=== PATIENT | male | born 1960 | race African-American/Black ===

== ENCOUNTER 2022-07-01 20:49 | Inpatient (IN) ==
[2022-07-01] MEDS ORDERED: ASPIRIN 81 MG CHEWTAB ONE (21:14)
[2022-07-01] MEDS ORDERED: ASPIRIN 81 MG CHEWTAB PO ONE (21:18)
[2022-07-01 21:33] LABS: INR 1.12 (0.8-1.3)
[2022-07-01 21:36] LABS: BASOPHILS # (AUTO) 0.1 X10^3/uL (0.0-0.1); BASOPHILS % (AUTO) 0.9 % (0.2-1.0); EOSINOPHILS # (AUTO) 0.3 x10^3/uL (0.0-0.2); EOSINOPHILS % (AUTO) 4.4 % (0.9-2.9); HEMATOCRIT 20.5 % (42.0-54.0); LYMPHOCYTES # (AUTO) 2.4 X10^3/uL (1.3-2.9); LYMPHOCYTES % (AUTO) 32.9 % (21.0-51.0); MEAN CORPUSCULAR HGB CONC 32.8 g/dL (33.0-35.0); MEAN CORPUSCULAR VOLUME 79.2 fL (80.0-100.0); MEAN PLATELET VOLUME 7.9 fL (7.4-11.0); MONOCYTES # (AUTO) 0.8 x10^3/uL (0.3-0.8); MONOCYTES % (AUTO) 10.8 % (0.0-13.0); NEUTROPHILS # (AUTO) 3.7 x10^3/uL (2.2-4.8); RED BLOOD COUNT 2.59 X10^6/uL (4.7-6.0); RED CELL DISTRIBUTION WIDTH 25.8 % (11.6-16.5); WHITE BLOOD COUNT 7.2 X10^3/uL (3.6-10.0)
[2022-07-01 21:40] LABS: ALANINE AMINOTRANSFERASE 22 Units/L (12-78); ALBUMIN 3.4 g/dL (3.4-5.0); ALKALINE PHOSPHATASE 98 Units/L (46-116); ASPARTATE AMINO TRANSFERASE 18 Units/L (15-37); BLOOD UREA NITROGEN 25 mg/dL (7-18); CALCIUM 8.1 mg/dL (8.5-10.1); CARBON DIOXIDE 28.4 mmol/L (21-32); CHLORIDE 105 mmol/L (98-107); CREATINE KINASE 200 Units/L (39-308); CREATININE 1.14 mg/dL (0.70-1.30); HEMOGLOBIN 6.7 g/dL (13.5-18.0); MAGNESIUM 2.1 mg/dL (1.7-2.9); SODIUM 141 mmol/L (136-145); eGFR NON BLACK RACES > 60 (>60)
[2022-07-01 22:04] LABS: ANISOCYTOSIS 3+; HYPOCHROMASIA 1+; MICROCYTOSIS SLIGHT; OVALOCYTES SLIGHT; PLATELET MORPHOLOGY COMMENT NORMAL (NORMAL); TARGET CELLS 1+
--- NOTE | 2022-07-01 22:12 | DR.N/VMALE ---
HPI Time Seen Time Seen by Provider: 07/01/22 22:11 Primary Care Physician Primary Care Physician: BELKIS RAM IN [place] HPI Comment HPI Comment: PATIENT IS 61YR OLD MALE WITH HISTORY OF HYPERTENSION, CAD, PREVIOUS IN, DYSLIPIDEMIA AND CHF IN ER WITH SQUEEZING CHEST PAIN AND TIGHTNESS. EPISODE TONIGHT WITH NAUSEA, VOMITING TIMES 2 AND DIZZINESS AND DIAPHORESIS. DID TAKE HIS DAILY 81MG ASPRIN. DENIES COUGH OR CONGESTION OR FEVER. NO DIARRHEA OR DYSURIA. SLIGH SOB ON EXERTION. Complaints Chief Complaint Doctors Comments: CHEST PAIN ON AND OFF TIMES ONE WEEK. Chief Complaint:: PT AMBULATORY IN ED WITH C/O 06/26 "SQUEEZING" CHEST TIGHTNESS x1 WEEK. N/V x2 AND COLD SWEATS TODAY AND SOME DIZZINESS. COVID-19 Coronavirus risk:travel/contact w/high risk person: No Has patient experienced Coronavirus symptoms: No Reviewed Nurses Notes Reviewed: Yes Source History Provided: Patient Mode of Arrival Mode of Arrival: Ambulatory Timing Onset of Chief Complaint: 06/24/22 Context Onset: Spontaneous Recent: None History of: Diabetes Associated Signs and Symptoms Abdominal Pain Quality: Other (SWEEZING, TIGHTNESS.) PMH PMH Past Medical History: Yes Past Medical History: CHF, Coronary Artery Disease, Diabetes, Dyslipidemia, Hypertension and IN Past Medical History Comment: [place] x2 Past Surgical History: Yes Surgical History: Angioplasty/Stents and CABG/Valve Surgery Past Surgical History Comment: TRIPLE BYPASS Family History History of Family Medical Conditions: Yes Family Medical History: Diabetes Mellitus, Coronary Artery Disease and Hypertension Social History Type of Tobacco Use: None Alcohol Use: DAILY Do you use any recreational Drugs:: No Lives With: Spouse Lives Where: Home Travel Risk Coronavirus risk:travel/contact w/high risk person: No Has patient experienced Coronavirus symptoms: No Infectious screening Have you traveled outside the country in the last 6 months?: No Isolation: Standard ROS Review of Systems Constitutional: Weakness and Fatigue; negative Fever Eyes: No Symptoms Reported ENTM: No Symptoms Reported; negative Nose Discharge or Nose Congestion Respiratoy: See HPI and Short of Breath; negative Moist Cough or Wheezing Cardiovascular: See HPI and Chest Pain; negative Edema or Palpitations Gastrointestinal/Abdominal: Nausea and Vomiting; negative Abdominal Pain or Radha rrhea Genitourinary: No Symptoms Reported and See HPI; negative Dysuria Neurological: See HPI, Weakness and Dizziness; negative Headache Musculoskeletal: No Symptoms Reported and See HPI; negative Back Pain, Muscle Pain or Chest wall Integumentary: No Symptoms Reported, See HPI and Dryness; negative Change in Color, Rash or Juandice Hematologic/Lymphatic: No Symptoms Reported and See HPI; negative Easy Bleeding, Easy Bruising or Swollen Glands Endocrine: No Symptoms Reported and See HPI; negative Increased Thirst or Increased Urine Psychiatric: No Symptoms Reported and See HPI All Other Systems: Reviewed and Negative PE Vital Signs Vitals: Temperature 98.8 F Pulse Rate [Left Radial] 81 Pulse Rate 80 Respiratory Rate 13 Blood Pressure [Left Arm] 152/57 Blood Pressure 162/67 O2 Sat by Pulse Oximetry 99 General Limitations: No Limitations General Appearance: Alert and In No Apparent Distress Head Head Exam: Normal Inspection and Atraumatic Eyes Eye exam: Normal Appearance, PERRL and EOMI; negative Scleral Icterus or Conjunctival Injection ENT ENT Exam: Normal Exam, Normal Oropharynx, Normal External Ear Exam and TM's Normal Bilaterally Neck Neck Exam: Normal Inspection and Trachea Midline; negative Tenderness Chest Chest Inspection: Normal Inspection and Symmetric Chest Wall Rise; negative Tenderness Respiratory Respiratory Exam: Normal Lung Sounds Bilat; negative Accessory Muscle Use, Chest Wall Tenderness or Respiratory Distress Respiratory Exam: Bilateral: Rhonchi Cardiovascular Cardiovascular Exam: Regular Rate, Normal Rhythm and Normal Heart Sounds; negative Systolic Murmur or Diastolic Murmur Abdominal Exam Abdominal Exam: Normal Inspection, Normal Bowel Sounds and Soft; negative Tenderness Rectal Rectal Exam: Deferred Exam: Male: Deferred Extremities Extremities Exam: Normal Inspection and Normal Capillary Refill Back Back Exam: Full ROM; negative (R) CVA Tenderness or (L) CVA Tenderness Neurologic Neurological Exam: Alert, Oriented X3 and CN II-XII Intact; negative Motor Sensory Deficit Psychiatric Psychiatric Exam: Normal Affect and Anxious Skin Skin Exam: Intact MDM Differential Diagnosis Differential Diagnosis: Considerations may Include:: Gastroenteritis, Pancreatitis and Other (IN, ANGINA, CHF, PNEUMONIA, UTI.) COURSE Treatment Treatment: SEE ORDERS DONE WHILE PATIENT WAS IN ER.MPATIENT HAD CP WHILE IN ER AND WAS RESOLVED WITH ONE S/L NTG. LABS, XRAY AND EKG REPORTS DISCUDDED WITH PATIENT. Consultation Consultation Comments: DISCUSSED PATIENT WITH DR. BERGERON. HE WILL ADMIT PATIENT. Education/Counseling Education/Counseling: Patient and Family Educated On: Diagnosis ROR Labs Reviewed Laboratory Results Reviewed?: Yes Result Diagrams: 07/01/22 21:15 07/01/22 21:15 Laboratory: WBC 7.2 X10^3/uL (3.6-10.0) 07/01/22 21:15 RBC 2.59 X10^6/uL (4.7-6.0) L 07/01/22 21:15 Hgb 6.7 g/dL (13.5-18.0) L* 07/01/22 21:15 Hct 20.5 % (42.0-54.0) L 07/01/22 21:15 MCV 79.2 fL (80.0-100.0) L 07/01/22 21:15 MCH 26.0 pg (27.0-34.0) L 07/01/22 21:15 MCHC 32.8 g/dL (33.0-35.0) L 07/01/22 21:15 RDW 25.8 % (11.6-16.5) H 07/01/22 21:15 Plt Count 320 X10^3/uL (150.0-450.0) 07/01/22 21:15 Plt Count Comment Adequate (ADEQUATE) 07/01/22 21:15 MPV 7.9 fL (7.4-11.0) 07/01/22 21:15 Neut % (Auto) 51.0 % (42.0-75.0) 07/01/22 21:15 Lymph % (Auto) 32.9 % (21.0-51.0) 07/01/22 21:15 [place] % (Auto) 10.8 % (0.0-13.0) 07/01/22 21:15 Eos % (Auto) 4.4 % (0.9-2.9) H 07/01/22 21:15 Baso % (Auto) 0.9 % (0.2-1.0) 07/01/22 21:15 Neut # (Auto) 3.7 x10^3/uL (2.2-4.8) 07/01/22 21:15 Lymph # (Auto) 2.4 X10^3/uL (1.3-2.9) 07/01/22 21:15 [place] # (Auto) 0.8 x10^3/uL (0.3-0.8) 07/01/22 21:15 Eos # (Auto) 0.3 x10^3/uL (0.0-0.2) H 07/01/22 21:15 Baso # (Auto) 0.1 X10^3/uL (0.0-0.1) 07/01/22 21:15 Absolute Nucleated RBC 0.3 /100WBC 07/01/22 21:15 Plt Morphology Comment Normal (NORMAL) 07/01/22 21:15 RBC Morphology Abnormal (NORMAL) 07/01/22 21:15 Dimorphic RBCs Present 07/01/22 21:15 Hypochromasia 1+ A 07/01/22 21:15 Anisocytosis 3+ A 07/01/22 21:15 Microcytosis Slight A 07/01/22:15 Target Cells 1+ A 07/01/22 21:15 Ovalocytes Slight A 07/01/22 21:15 PT 14.1 SECONDS (11.8-14.3) 07/01/22 21:15 INR Target Range - 07/01/22 21:15 INR 1.12 (0.8-1.3) 07/01/22 21:15 APTT 30.2 SECONDS (22.9-36.5) 07/01/22 21:15 PTT Comment - 07/01/22 21:15 Sodium 141 mmol/L (136-145) 07/01/22 21:15 Corrected Sodium TNP 07/01/22 21:15 Potassium 3.5 mmol/L (3.5-5.1) 07/01/22 21:15 Chloride 105 mmol/L (98-107) 07/01/22 21:15 Carbon Dioxide 28.4 mmol/L (21-32) 07/01/22 21:15 BUN 25 mg/dL (7-18) H 07/01/22 21:15 Creatinine 1.14 mg/dL (0.70-1.30) 07/01/22 21:15 Est GFR (MDRD) Af Amer > 60 (>60) 07/01/22 21:15 Est GFR (MDRD) Non-Af > 60 (>60) 07/01/22 21:15 Glucose 89 mg/dL (65-99) 07/01/22 21:15 Calcium 8.1 mg/dL (8.5-10.1) L 07/01/22 21:15 Corrected Calcium TNP 07/01/22 21:15 Magnesium 2.1 mg/dL (1.7-2.9) 07/01/22 21:15 Iron 25 ug/dL (50-175) L 07/01/22 21:15 Transferrin 274 mg/dL (202-364) 07/01/22 21:15 Ferritin 11 ng/mL (26-388) L 07/01/22 21:15 Total Bilirubin 0.20 mg/dL (0.2-1.0) 07/01/22 21:15 AST 18 Units/L (15-37) 07/01/22 21:15 ALT 22 Units/L (12-78) 07/01/22 21:15 Alkaline Phosphatase 98 Units/L (46-116) 07/01/22 21:15 Creatine Kinase 200 Units/L (39-308) 07/01/22 21:15 Troponin I High Sens 41.6 ng/L (4.0-60.0) 07/01/22 21:15 Total Protein 7.0 g/dL (6.4-8.2) 07/01/22 21:15 Albumin 3.4 g/dL (3.4-5.0) 07/01/22 21:15 Globulin 3.6 g/dL (2.5-4.5) 07/01/22 21:15 Albumin/Globulin Ratio 0.9 Ratio (1.1-2.1) L 07/01/22 21:15 Vitamin B12 271 pg/mL (193-986) 07/01/22 21:15 Folate 11.2 ng/mL (>8.6) 07/01/22 21:15 Blood Type O POSITIVE 07/01/22 21:55 Antibody Screen Negative 07/01/22 21:55 Crossmatch See Detail 07/01/22 21:55 XRAY XRAY Interpreted by: Radiologist (REPORT NOTED.) and Self EKG Rate: 75 [place]: Normal Rhythm: NSR Block: None Hypertrophy: None ST: Ischemia Opioid Opioid Risk Tool Age (Don box if 16-45): No History of Preadolescent Sexual Abuse: No Total: 0 Total Score Risk Category: Low Risk Copyright: Aidan FIELDS predicting aberrant behaviors Discharge Plan Diagnosis Discharge Problem: Chest pain, Anemia Discharge Plan Patient Disposition: 09 ADMITTED INPATIENT Condition: Stable Discharge Comment: PT ADMITTED TO [id number] Orders to Discharge Patient Discharge Orders: Transfer (Routine); Ordered 07/01/22 Ordered By: XI COPELAND
[2022-07-01] MEDS ORDERED: NITROSTAT SL PRN (22:37)
--- NOTE | 2022-07-01 23:06 | RAD ---
HISTORYpt c/o tightness in chest. n/vSTUDYCHEST, 1 VIEWCOMPARISONNone availableTECHNIQUEChest radiographic imaging, AP portable projection, 1 imageFINDINGSNo cardiomegaly.Status post median sternotomy/CABG.No focal airspace disease.No pleural effusion.No pneumothorax.No acute osseous abnormality.IMPRESSIONNo imaging findings of acute cardiopulmonary disease.Electronically signed by: Dom Gaston (Jul 01, 2022 23:05:18)
[2022-07-01] MEDS ORDERED: NS 250 ML IV 250 ML IV ONE (23:47)
[2022-07-02] MEDS ORDERED: MORPHINE SULFATE INJ 2 MG INJ IVP PRN (00:50)
[2022-07-02 01:02] VITALS: BMI 30.2
[2022-07-02] MEDS ORDERED: NovoLIN R (or HumuLIN R) SUBCUT PRN (01:27)
[2022-07-02] MEDS: NS 1,000 ML IV 1,000 ML IV SCH ×2 (01:42→18:57)
[2022-07-02 03:48] LABS: BASOPHILS % (AUTO) 0.7 % (0.2-1.0); EOSINOPHILS # (AUTO) 0.3 x10^3/uL (0.0-0.2); EOSINOPHILS % (AUTO) 4.6 % (0.9-2.9); LYMPHOCYTES # (AUTO) 2.4 X10^3/uL (1.3-2.9); LYMPHOCYTES % (AUTO) 34.8 % (21.0-51.0); MEAN CORPUSCULAR HEMOGLOBIN 25.9 pg (27.0-34.0); MEAN CORPUSCULAR HGB CONC 33.2 g/dL (33.0-35.0); MEAN PLATELET VOLUME 7.8 fL (7.4-11.0); MONOCYTES # (AUTO) 0.7 x10^3/uL (0.3-0.8); MONOCYTES % (AUTO) 9.5 % (0.0-13.0); NEUTROPHILS # (AUTO) 3.5 x10^3/uL (2.2-4.8); NEUTROPHILS % (AUTO) 50.4 % (42.0-75.0); RED BLOOD COUNT 2.46 X10^6/uL (4.7-6.0); RED CELL DISTRIBUTION WIDTH 25.5 % (11.6-16.5); WHITE BLOOD COUNT 6.9 X10^3/uL (3.6-10.0)
[2022-07-02 03:56] LABS: HEMATOCRIT 19.2 % (42.0-54.0); HEMOGLOBIN 6.4 g/dL (13.5-18.0)
[2022-07-02 04:00] LABS: ALANINE AMINOTRANSFERASE 21 Units/L (12-78); ALBUMIN 3.1 g/dL (3.4-5.0); ALKALINE PHOSPHATASE 91 Units/L (46-116); ASPARTATE AMINO TRANSFERASE 15 Units/L (15-37); BLOOD UREA NITROGEN 21 mg/dL (7-18); CALCIUM 7.6 mg/dL (8.5-10.1); CARBON DIOXIDE 28.9 mmol/L (21-32); CHLORIDE 106 mmol/L (98-107); CHOL/HDL RATIO 2.3 (0.0-5.0); COR CA(FOR HYPOALB) 8.3 mg/dL (8.5-10.1); CREATININE 0.86 mg/dL (0.70-1.30); SODIUM 140 mmol/L (136-145); TOTAL PROTEIN 6.5 g/dL (6.4-8.2); eGFR NON BLACK RACES > 60 (>60)
[2022-07-02 04:21] LABS: ANISOCYTOSIS 3+; GIANT PLATELET RARE; HYPOCHROMASIA 1+; MICROCYTOSIS SLIGHT; PLATELET MORPHOLOGY COMMENT ABNORMAL (NORMAL)
[2022-07-02 04:22] LABS: OVALOCYTES SLIGHT; TARGET CELLS 1+
[2022-07-02] MEDS ORDERED: NS 250 ML IV 250 ML IV ONE (08:22)
[2022-07-02] MEDS ORDERED: ASPIRIN PO SCH (09:00)
[2022-07-02] MEDS ORDERED: MAGNESIUM SULFATE 1 GRAM/100 mL PREMIX 1 G/100 ML BAG IV PRN (09:22)
[2022-07-02] MEDS ORDERED: K-DUR TAB 20 MEQ PO PRN (09:22)
[2022-07-02] MEDS: ASPIRIN EC 81 MG PO SCH (09:25)
[2022-07-02 13:29] LABS: HEMATOCRIT 25.2 % (42.0-54.0)
[2022-07-02 13:30] LABS: HEMOGLOBIN 8.6 g/dL (13.5-18.0)
[2022-07-02] MEDS ORDERED: SNACK - Diabetic Appropriate PO SCH (20:00)
[2022-07-03] MEDS: NS 1,000 ML IV 1,000 ML IV SCH (03:32)
[2022-07-03 06:30] LABS: BASOPHILS # (AUTO) 0.1 X10^3/uL (0.0-0.1); BASOPHILS % (AUTO) 0.7 % (0.2-1.0); EOSINOPHILS # (AUTO) 0.4 x10^3/uL (0.0-0.2); EOSINOPHILS % (AUTO) 4.3 % (0.9-2.9); HEMATOCRIT 24.3 % (42.0-54.0); HEMOGLOBIN 8.2 g/dL (13.5-18.0); LYMPHOCYTES # (AUTO) 2.5 X10^3/uL (1.3-2.9); LYMPHOCYTES % (AUTO) 26.4 % (21.0-51.0); MEAN CORPUSCULAR HGB CONC 33.5 g/dL (33.0-35.0); MEAN CORPUSCULAR VOLUME 80.6 fL (80.0-100.0); MONOCYTES # (AUTO) 0.8 x10^3/uL (0.3-0.8); MONOCYTES % (AUTO) 8.7 % (0.0-13.0); NEUTROPHILS # (AUTO) 5.6 x10^3/uL (2.2-4.8); NEUTROPHILS % (AUTO) 59.9 % (42.0-75.0); RED BLOOD COUNT 3.02 X10^6/uL (4.7-6.0); WHITE BLOOD COUNT 9.4 X10^3/uL (3.6-10.0)
[2022-07-03 06:46] LABS: ALANINE AMINOTRANSFERASE 19 Units/L (12-78); ALKALINE PHOSPHATASE 89 Units/L (46-116); ASPARTATE AMINO TRANSFERASE 16 Units/L (15-37); BLOOD UREA NITROGEN 16 mg/dL (7-18); CALCIUM 7.7 mg/dL (8.5-10.1); CHLORIDE 107 mmol/L (98-107); COR CA(FOR HYPOALB) 8.5 mg/dL (8.5-10.1); CREATININE 0.73 mg/dL (0.70-1.30); SODIUM 139 mmol/L (136-145); TOTAL PROTEIN 6.5 g/dL (6.4-8.2); eGFR NON BLACK RACES > 60 (>60)
[2022-07-03 07:21] LABS: ANISOCYTOSIS 1+; BURR CELLS SLIGHT; OVALOCYTES SLIGHT; PLATELET MORPHOLOGY COMMENT NORMAL (NORMAL)
[2022-07-03] MEDS: ASPIRIN EC 81 MG PO SCH (09:36)
[2022-07-03] MEDS ORDERED: PEPCID 20 MG VIAL 20 MG in NS 50 ML IV 50 ML IV SCH (10:00)
[2022-07-03] MEDS ORDERED: PROTONIX INJ 40 MG VIAL IVP SCH (10:00)
--- NOTE | 2022-07-03 10:31 | DR.H&P ---
H&P - History & Physical for Day of: H&P Date: 07/01/22 - Chief Complaint Chief Complaint: CHEST PAIN AND TIGHTNESS, DIZZINESS, DIAPHORESIS, SHORNTESS OF BREATH, AND NAUSEA/VOMITING - History of Present Illness History of Present Illness: IS A 61 YEAR OLD MALE. HE PRESENTED TO THE ER WITH COMPLAINTS OF CHEST PAIN AND TIGHTNESS, DIZZINESS, DIAPHORESIS, SHORNTESS OF BREATH, AND NAUSEA/VOMITING. HE ADMITS TO VOMITING TWO TIMES PRIOR TO ARRIVAL. HE DENIES COUGH, CONGESTION, FEVER, OR DIARRHEA. CHEST PAIN IS DESCRIBED SQUEEZING. HE RATED PAIN A 10/10 IN THE ER. SYMPTOMS STARTED ABOUT A WEEK AGO. HIS PMH INCLUDES: CHF, CAD, DM II, DYSLIPIDEMIA, HTN, [place] X 2, CARDIAC STENTS, TRIPLE BYPASS. ON ARRIVAL TO THE HOSPITAL, VITALS WERE 98.9-88-20-100%-122/57. LABS WERE OBTAINED. WBC 7.2, RBC 2.59, HGB 6.7, HCT 20.5, PLT COUNT 320, SODIUM 141, POTASSIUM 3.5, CHLORIDE 105, BUN 25, CREATININE 1.14, GLUCOSE 89, CALCIUM 8.1, MAGNESIUM 2.1, IRON 25, TRANSFERRIN 274, FERRITIN 11, B12 271, FOLATE 11.2, AST 18, ALT 22, ALK PHOS 98, CREATINE KINASE 200, TOTAL PROTEIN 7.0, ALBUMIN 3.4. CHEST XRAY WAS OBTAINED AND REVEALED: No imaging findings of acute cardiopulmonary disease. EKG REVEALED: NORMAL SINUS RHYTHM WITH HR 78. HE WAS ADMITTED TO THE HOSPITAL FOR FURTHER EVALUATION AND TREATMENT OF SEVERE ANEMIA, CHEST PAIN RULE OUT ACUTE [place]. HE WAS STARTED ON NORMAL SALINE AT KVO, MORPHINE SULFATE 4MG IV Q6H PRN, HEMOCYTE PLUS 1 TABLET DAILY, PEPCID 20MG IV Q12H, PROTONIX 40MG IV BID, OTBS ACHS, HUMULIN R SLIDING SCALE, NITRO 0.4MG SL Q5M PRN, POTASSIUM AND MAGNESIUM PROTOCOLS, AND ASPIRIN 81MG PO DAILY. WE PLANNED TO TRANSFUSE 2 UNITS OF PRBC ON ADMISSION. OTHERWISE, WE WILL FOLLOW- UP WITH AM LABS AND CONTINUE TO MONITOR. TIME SPENT ON CLINICAL ASSESSMENT, REVIWING LABS AND IMAGING, DECISION MAKING, AND DOCUMENTATION GREATER THAN 75 MINUTES. - Past Medical History Past Medical History: [place], Coronary Artery Disease, Hypertension, Dyslipidemia, Diabetes, CHF - Past Surgical History Surgical History: Angioplasty/Stents, CABG/Valve Surgery - Family History Family Medical History: Diabetes Mellitus, Cancer, Coronary Artery Disease, Hypertension - Social History Does patient currently use any type of tobacco product: No Have you used tobacco products in the last 12 months: No Type of Tobacco Use: None Does any household member use tobacco: No Alcohol Use: Occasionally Drug Use: Prescription Drugs - Medications Home Medications: No Known Drug Allergies Allergy (Verified 06/09/19 08:27) CONTINUE taking the following medications aspirin 81 mg tablet,delayed release 81 mg PO DAILY 07/01/22 [History] - Review of Systems Constitutional: Weakness Eyes: No Symptoms Reported ENT: No Symptoms Reported Respiratory: No Symptoms Reported Cardiovascular: Chest Pain, Light Headedness Gastrointestinal: No Symptoms Reported Genitourinary: No Symptoms Reported Musculoskeletal: No Symptoms Reported Skin: No Symptoms Reported Neurological: Weakness - Physical Exam Vital Signs: Temperature 97.9 F Pulse Rate [Left Radial] 68 Pulse Rate 80 Respiratory Rate 20 Blood Pressure [Right Arm] 135/63 Blood Pressure [Left Arm] 157/73 Blood Pressure 164/73 O2 Sat by Pulse Oximetry 100 Oriented: Normal Eyes: Normal Ear: Normal Nose: Normal Throat: Normal Respiratory: Diminished Throughout Cardiovascular: Normal : Normal Auscultation: Bowel Sounds: Normal Palpation: Normal Tenderness: Normal Skin: Normal Musculoskeletal: Normal Psychiatric: Normal Mood Description: Calm Affect: Normal Speech Pattern: Clear - Assessment/Plan (1) Symptomatic anemia Status: Acute (2) Chest pain Qualifiers: Chest pain type: unspecified Qualified Code(s): R07.9 - Chest pain, unspecified Status: Acute (3) Diabetes mellitus Qualifiers: Diabetes mellitus type: type 2 Diabetes mellitus long lines operator insulin use: unspecified senior care insulin use status Diabetes mellitus complication status: without complication Qualified Code(s): E11.9 - Type 2 diabetes mellitus without complications Status: Chronic - Allergies Allergies/Adverse Reactions: Allergies Allergy/AdvReac Type Severity Reaction Status Date / Time No Known Drug Allergies Allergy Verified 06/09/19 08:27
[2022-07-03] MEDS ORDERED: HEMOCYTE-PLUS PO SCH (11:00)
[2022-07-03 13:03] VITALS: BP 145/78
== END 2022-07-03 14:38 | disposition home or self-care (01) | DRG 313 ==
LOC: SUPCPDRO → ER 20:52 → MED/SURG 23:11
PROVIDERS: ADMIT Internal Medicine; ATTEND Internal Medicine
DX: D64.89 Other specified anemias; K21.9 Gastro-esophageal reflux disease without esophagitis; R94.31 Abnormal electrocardiogram [ECG] [EKG]; E11.65 Type 2 diabetes mellitus with hyperglycemia; E78.2 Mixed hyperlipidemia; R11.2 Nausea with vomiting, unspecified; I25.2 Old myocardial infarction; R06.02 Shortness of breath; I10 Essential (primary) hypertension; R07.89 Other chest pain; R10.84 Generalized abdominal pain; R42 Dizziness and giddiness

== ENCOUNTER 2024-11-25 10:09 | Inpatient (IN) ==
[2024-11-25 10:28] LABS: BASOPHILS # (AUTO) 0.1 X10^3/uL (0.0-0.1); BASOPHILS % (AUTO) 1.2 % (0.2-1.0); EOSINOPHILS # (AUTO) 0.2 x10^3/uL (0.0-0.2); EOSINOPHILS % (AUTO) 3.2 % (0.9-2.9); HEMATOCRIT 43.5 % (42.0-54.0); HEMOGLOBIN 14.8 g/dL (13.5-18.0); LYMPHOCYTES # (AUTO) 2.1 X10^3/uL (1.3-2.9); LYMPHOCYTES % (AUTO) 36.6 % (21.0-51.0); MEAN CORPUSCULAR HEMOGLOBIN 31.4 pg (27.0-34.0); MEAN CORPUSCULAR HGB CONC 34.1 g/dL (33.0-35.0); MEAN CORPUSCULAR VOLUME 92.2 fL (80.0-100.0); MEAN PLATELET VOLUME 8.8 fL (7.4-11.0); MONOCYTES # (AUTO) 0.5 x10^3/uL (0.3-0.8); MONOCYTES % (AUTO) 8.2 % (0.0-13.0); NEUTROPHILS # (AUTO) 2.9 x10^3/uL (2.2-4.8); NEUTROPHILS % (AUTO) 50.8 % (42.0-75.0); PLATELET COUNT 183 X10^3/uL (150.0-450.0); RED BLOOD COUNT 4.72 X10^6/uL (4.7-6.0); RED CELL DISTRIBUTION WIDTH 13.9 % (11.6-16.5); WHITE BLOOD COUNT 5.7 X10^3/uL (3.6-10.0)
[2024-11-25 10:45] LABS: ALANINE AMINOTRANSFERASE 35 Units/L (12-78); ALBUMIN 3.7 g/dL (3.4-5.0); ALKALINE PHOSPHATASE 120 Units/L (46-116); ASPARTATE AMINO TRANSFERASE 26 Units/L (15-37); BLOOD UREA NITROGEN 13 mg/dL (7-18); CALCIUM 9.1 mg/dL (8.5-10.1); CARBON DIOXIDE 28.9 mmol/L (21-32); CHLORIDE 102 mmol/L (98-107); CHOL/HDL RATIO 2.2 (0.0-5.0); CHOLESTEROL 134 mg/dL (0-200); COR NA(FOR HYPERGLY) 142 mmol/L (136-145); CREATINE KINASE 255 Units/L (39-308); CREATININE 0.93 mg/dL (0.70-1.30); GLUCOSE 250 mg/dL (65-99); HDL CHOLESTEROL 61 mg/dL (40-60); INR 1.04 (0.8-1.3); POTASSIUM 3.4 mmol/L (3.5-5.1); SODIUM 138 mmol/L (136-145); TOTAL PROTEIN 8.2 g/dL (6.4-8.2); TRIGLYCERIDES 107 mg/dL (0-150); eGFR NON BLACK RACES > 60 (>60)
--- NOTE | 2024-11-25 11:17 | EKG ---
Test Reason : possible stroke Blood Pressure : */* mmHG Vent. Rate : 75 BPM Atrial Rate : 75 BPM P-R Int : 188 ms QRS Dur : 108 ms QT Int : 440 ms P-R-T Axes : 55 -3 151 degrees QTc Int : 491 ms Normal sinus rhythm Left ventricular hypertrophy with repolarization abnormality ( R in aVL , Merrillan product ) Cannot rule out Septal infarct , age undetermined Abnormal ECG When compared with ECG of 27-JUL-2024 15:34, Minimal criteria for Septal infarct are now present ST elevation now present in Anterior leads Confirmed by Victor Manuel Lyman MD ([id number]) on 11/25/2024 6:49:37 PM Referred By: Confirmed By: Victor Manuel Lyman MD
--- NOTE | 2024-11-25 11:29 | TELESTROKE ---
[facility] Consult Date of Consult Date of Exam: 11/25/24 Time of Arrival to the ED: 10:09 Allergies Allergies Allergy/AdvReac Type Severity Reaction Status Date / Time No Known Drug Allergies Allergy Verified 07/27/24 15:12 Vital Signs Vital Signs: Temp Pulse Resp BP Pulse Ox 11/25/24 10:57 130/62 11/25/24 10:57 72 20 95 11/25/24 10:50 73 11/25/24 10:26 75 18 96 11/25/24 10:26 170/77 11/25/24 10:20 74 18 96 11/25/24 10:20 165/58 11/25/24 10:19 75 97 11/25/24 10:22 98.0 F 75 20 178/80 98 History of Present Illness History of Present Illness: [facility] Patient Name:Otf Hand Date of :1960 Identification Number: Date of Service:11/25/2024 10:16:37 Diagnosis:I63.89 - Cerebrovascular accident (CVA) due to other mechanism ([facility]) Impression: 63 yo male with history of HTN, HLD, DM, CAD on ASA/Plavix presenting to the ED with Left sided numbness, TLKW ~2300 last night. NIHSS 4 for mild Left hemiparesis, LUE dysmetria and decreased sensation Left. CT Head negative for acute hemorrhage. CTA pending, will follow-up. Concern for acute lacunar stroke. He is outside the time window for thrombolytics. Plan to admit for MRI Brain wo and stroke workup. Continue DAPT. Permissive HTN. Consider checking response to Plavix. Our recommendations are outlined below. Recommendations: Stroke/Telemetry Floor Neuro Checks Bedside Swallow Eval DVT Prophylaxis IV Fluids, Normal Saline Head of Bed 30 Degrees Euglycemia and Avoid Hyperthermia (PRN Acetaminophen) Initiate dual antiplatelet therapy with Aspirin 81 mg daily and Clopidogrel 75 mg daily. Antihypertensives PRN if Blood pressure is greater than 220/120 or there is a concern for End organ damage/contraindications for permissive HTN. If blood pressure is greater than 220/120 give labetalol PO or IV or Vasotec IV with a goal of 15% reduction in BP during the first 24 hours. Sign Out: Discussed with Emergency Department Provider Advanced Imaging:Advanced imaging has been ordered. Results pending. Metrics: Last Known Well: 11/24/2024 23:00:00 Dispatch Time: 11/25/2024 10:16:37 Arrival Time: 11/25/2024 10:09:00 Initial Response Time: 11/25/2024 10:21:08Symptoms: Left sided numbness. Initial patient interaction: 11/25/2024 10:21:47 NIHSS Assessment Completed: 11/25/2024 10:26:28Patient is not a candidate for Thrombolytic. Thrombolytic Medical Decision: 11/25/2024 10:26:29Patient was not deemed candidate for Thrombolytic because of following reasons: LKW outside 4.[address] head showed no acute hemorrhage or acute core infarct. Primary Provider Notified of Diagnostic Impression and Management Plan on: 11/15 11:24:55 History of Present Illness:Patient is a 63 year old Male. Patient was brought by private transportation with symptoms of Left sided numbness. Patient presenting from home. Reports that he was last completely normal at ~2300 last night. Shortly after this he developed Left sided numbness. Denies any associated weakness or worsening difficulty with walking. No prior history of similar symptoms. Past Medical History: Hypertension Diabetes Mellitus Hyperlipidemia Coronary Artery Disease Medications: No Anticoagulant use Antiplatelet use:YesASA/Plavix Reviewed EMR for current medications Allergies: Reviewed Social History: Drug Use: No Family History: There is no family history of premature cerebrovascular disease pertinent to this consultation ROS : 14 Points Review of Systems was performed and was negative except mentioned in HPI. Past Surgical History: There Is No Surgical History Contributory To Todays Visit Examination: BP(165/58),Pulse(74), 1A: Level of Consciousness - Alert; keenly responsive+ 0 1B: Ask Month and Age - Both Questions Right+ 0 1C: Blink Eyes & Squeeze Hands - Performs Both Tasks+ 0 2: Test Horizontal Extraocular Movements - Normal+ 0 3: Test Visual [place] - No Visual Loss+ 0 4: Test Facial Palsy (Use Grimace if Obtunded) - Normal symmetry+ 0 5A: Test Left Arm Motor Drift - Drift, but doesn't hit bed+ 1 5B: Test Right Arm Motor Drift - No Drift for 10 Seconds+ 0 6A: Test Left Leg Motor Drift - Drift, but doesn't hit bed+ 1 6B: Test Right Leg Motor Drift - No Drift for 5 Seconds+ 0 7: Test Limb Ataxia (FNF/Heel-Bowman) - Ataxia in 1 Limb+ 1 8: Test Sensation - Mild-Moderate Loss: Can Sense Being Touched+ 1 9: Test Language/Aphasia - Normal; No aphasia+ 0 10: Test Dysarthria - Normal+ 0 11: Test Extinction/Inattention - No abnormality+ 0 NIHSS Score:4 Pre-Morbid Modified [place] Scale:0 Points = No symptoms at all Spoke with :Dr. Betancourt This consult was conducted in real time using interactive audio and video technology. Patient was informed of the technology being used for this visit and agreed to proceed. Patient located in hospital and provider located at home/office setting. Patient is being evaluated for possible acute neurologic impairment and high probability of imminent or life-threatening deterioration. I spent total of 30 minutes providing care to this patient, including time for face to face visit via telemedicine, review of medical records, imaging studies and discussion of findings with providers, the patient and/or family. Dr Denys Trevino [facility] For Inpatient follow-up with [facility] physician please call [facility] at . As we are not an outpatient service for any post hospital discharge needs please contact the hospital for assistance. If you have any questions for the [facility] physicians or need to reconsult for clinical or diagnostic changes please contact us via [facility] at [phone]. Medical Decision Making 11/25/24 10:17 11/25/24 10:17 Labs: Laboratory Results - last 24 hr 11/25/24 10:17 WBC 5.7 RBC 4.72 Hgb 14.8 Hct 43.5 MCV 92.2 MCH 31.4 MCHC 34.1 RDW 13.9 Plt Count 183 MPV 8.8 Neut % (Auto) 50.8 Lymph % (Auto) 36.6 [place] % (Auto) 8.2 Eos % (Auto) 3.2 H Baso % (Auto) 1.2 H Neut # (Auto) 2.9 Lymph # (Auto) 2.1 [place] # (Auto) 0.5 Eos # (Auto) 0.2 Baso # (Auto) 0.1 Absolute Nucleated RBC 0.0 PT 13.4 INR Target Range - INR 1.04 APTT 32.2 PTT Comment - Fibrinogen 421 Sodium 138 Corrected Sodium 142 Potassium 3.4 L Chloride 102 Carbon Dioxide 28.9 BUN 13 Creatinine 0.93 Est GFR (MDRD) Af Amer > 60 Est GFR (MDRD) Non-Af > 60 Glucose 250 H Calcium 9.1 Corrected Calcium TNP Total Bilirubin 0.50 AST 26 ALT 35 Alkaline Phosphatase 120 H Creatine Kinase 255 Troponin I High Sens 25.6 Total Protein 8.2 Albumin 3.7 Globulin 4.5 Albumin/Globulin Ratio 0.8 L Triglycerides 107 Cholesterol 134 LDL Cholesterol, Calc 52 HDL Cholesterol 61 H Cholesterol/HDL Ratio 2.2
--- NOTE | 2024-11-25 11:37 | RAD ---
EXAM: Portable chest HISTORY: Stroke symptoms, left-sided numbness COMPARISON: 07/27/2024 FINDINGS: Patient is status post median sternotomy and CABG. Heart is enlarged. No congestive heart failure is noted. Yazmin are normal. Lung seth are clear. No pleural effusions identified. Bony thorax i s unremarkable. IMPRESSION: Cardiomegaly without congestive heart failure Lungs clear THIS IS AN ELECTRONICALLY VERIFIED FINAL REPORT 11/25/2024 11:30 AM - Electronically signed by Zaid Go MD
--- NOTE | 2024-11-25 11:45 | CT ---
EXAM: BRAIN W/O CON HISTORY: STROKE SYMPTOMS, LEFT SIDE NUMBNESS; CHF, HTN, DM ANGIOPLASTY, STENTS COMPARISON: None. TECHNIQUE: Axial CT of the head is performed from the base of the skull through the vertex without contrast . Mu ltiplaner reformats are generated from the original axial data. FINDINGS: There is no evidence of an acute intracranial hemorrhage or extra-axial fluid collection. There is n o mass effect, midline shift, or evidence of cerebral edema. The ventricular size is normal. Cortic al wells-white matter differentiation is maintained without sulcal effacement. There is no evidence o f an acute stage, large artery territorial infarction. The calvarium is intact. The paranasal sinuses and mastoid air cells are predominantly clear. The c erebellar tonsils are normal in position. No suprasellar asymmetry is identified. Small mucous retention cysts or polyps are incidentally noted within the dependent maxillary sinus ch ambers. There is no extra calvarial soft tissue asymmetry. IMPRESSION: No acute intracranial abnormalities. Specifically, no intracranial hemorrhage or large artery territ orial infarction is identified on the initial CT of the head. If there is definite, focal, acute neurologic deficit, follow up imaging is recommended to evaluate f or evolutionary changes. MRI with DWI provides the highest level of initial sensitivity for the detec tion of acute ischemic infarcts. Radiation dose reduction was achieved through individualized adjustment of kVP and/or mA, through ada ptive statistical iterative reconstruction, and/or through automated tube current modulation. THIS IS AN ELECTRONICALLY VERIFIED FINAL REPORT 11/25/2024 11:43 AM - Electronically signed by Larry Gilbert MD
--- NOTE | 2024-11-25 12:06 | CT ---
EXAM: CT ARTERIOGRAM NECK WITH CONTRAST AND 3D REFORMATIONS HISTORY: STROKE SYMPTOMS, LEFT SIDE NUMBNESS; CHF, HTN, DM ANGIOPLASTY, STENTS . COMPARISON: CT from same date. TECHNIQUE: Axial CTA images were obtained from the aortic arch through the skull base after uneventful administr ation of contrast. Coronal, sagittal as well as 3D reformations were post processed on an independent workstation. When appropriate, NASCET criteria was used for the estimation of stenosis. All CT scans at this facility use dose modulation, iterative reconstruction, and/or weight based dosi ng when appropriate to reduce radiation dose to as low as reasonably achievable. FINDINGS: Left carotid: Mild left common carotid artery noncalcified plaque without stenosis. Mixed plaque at the left carotid bifurcation and proximal left internal carotid artery with mild stenosis. Mixed marilu que in the distal left internal carotid artery with mild stenosis. Right carotid: Mild right common carotid artery noncalcified plaque without stenosis. Mixed plaque a t the right carotid bifurcation and proximal right internal carotid artery with focal severe stenosis at the bifurcation that measures approximately 90%. There is approximately 75% stenosis in the prox imal right internal carotid artery. Mid and distal right internal carotid artery is patent without e vidence of stenosis. Vertebral arteries: Right dominant vertebral artery. Vertebral arteries are patent without focal rickie nosis or occlusion. Visualized basilar artery is patent and normal caliber. Aortic arch: Anatomic variant 4 vessel aortic arch with the left vertebral artery arising directly fr om the arch. Visualized aortic arch is normal caliber. Partially visualized postsurgical changes fr om CABG. BONES: No acute osseous findings. Moderate cervical spondylosis. Partially visualized median sterno roque wires. ADDITIONAL FINDINGS: No acute findings in the soft tissues of the neck. Respiratory motion in the vi sualized lung apices. IMPRESSION: 1. Heterogeneous plaque at the right carotid bifurcation results in approximate 90% stenosis as well as in the proximal right internal carotid artery with approximately 75% stenosis. 2. Mixed plaque at the left carotid bifurcation and scattered in the left internal carotid artery wit h mild areas of stenosis. THIS IS AN ELECTRONICALLY VERIFIED FINAL REPORT 11/25/2024 12:03 PM - Electronically signed by Hesham Zurita MD
[2024-11-25 12:08] LABS: BILIRUBIN,URINE NEGATIVE (NEGATIVE); BLOOD/HEMOGLOBIN,URINE 2+ (NEGATIVE); GLUCOSE, URINE 3+ (NEGATIVE); KETONES,URINE NEGATIVE (NEGATIVE); LEUKOCYTE ESTERASE ,URINE NEGATIVE (NEGATIVE); NITRITES,URINE NEGATIVE (NEGATIVE); PH,URINE 6.5 (5.0 - 8.0); PROTEIN,URINE 1+ (NEGATIVE); UROBILINOGEN,URINE NORMAL (NORMAL)
--- NOTE | 2024-11-25 12:09 | CT ---
EXAM: CT ARTERIOGRAM HEAD WITH CONTRAST AND 3D REFORMATIONS HISTORY: STROKE SYMPTOMS, LEFT SIDE NUMBNESS; CHF, HTN, DM ANGIOPLASTY, STENTS . COMPARISON: CT head and CTA neck from same date. TECHNIQUE: Axial CTA images were obtained from the skull base through the vertex of the brain after the intraven ous administration of contrast. Coronal and sagittal reformatted images were included. 3D reconstruct ions were performed with concurrent physician supervision at a separate independent workstation and M IP images were also performed. When appropriate, NASCET criteria was used for the estimation of sten osis. All CT scans at this facility use dose modulation, iterative reconstruction, and/or weight based dosi ng when appropriate to reduce radiation dose to as low as reasonably achievable. FINDINGS: [place]: The anterior, middle, and posterior cerebral arteries are patent without evidence o f focal stenosis or occlusion. Anterior and posterior communicating arteries are patent. No evidenc e of intracranial aneurysm. Moderate bilateral carotid siphon calcifications. Dural venous sinuses are normally opacified. BRAIN: No enhancing intracranial abnormalities. No hydrocephalus. No evidence of intracranial hemor rhage. BONES: Left maxillary sinus mucous retention cysts. Mastoid air cells are well-aerated. IMPRESSION: CTA of the brain is within normal limits. No evidence of large vessel occlusion or flow limiting rickie nosis. THIS IS AN ELECTRONICALLY VERIFIED FINAL REPORT 11/25/2024 12:05 PM - Electronically signed by Hesham Zurita MD
[2024-11-25 12:18] LABS: APPEARANCE,URINE CLEAR (CLEAR); COLOR,URINE YELLOW (YELLOW); RBC,URINE 0-2 /HPF (0-3)
[2024-11-25 12:19] LABS: BACTERIA,URINE NEGATIVE /HPF (NEGATIVE); SQUAMOUS EPITHELIAL CELL,UR RARE /HPF (NEGATIVE)
--- NOTE | 2024-11-25 12:25 | DR.WEAKNES ---
HPI Time Seen Time Seen by Provider: 11/25/24 11:50 Primary Care Physician Primary Care Physician: Dr. Zhnog at [facility] in [place] Complaints Chief Complaint Doctors Comments: 63 yo M, hx of CAD with prior stents, c/o acute onset of numbness to L side of his body, including L face, LUE & LLE, onset 12h ago. Denies other complaints. Pt currently on plavix & ASA for CAD. Chief Complaint:: Pt reports that around 2330 last night he had a sudden onset of numbness in the left side of his face and down the entire left side of his body. Pt denies any dizziness, chest pain, or recent illness. Source History Provided: Patient Mode of Arrival Mode of Arrival: Ambulatory Timing Onset of Chief Complaint: 11/24/24 Symptom Onset: Known (12h RADIOLOGY NURSE) Context Stroke Symptoms: Numbness of limbs (L-sided) PMH PMH Past Medical History: Yes Past Medical History: Arthritis, Coronary Artery Disease, Diabetes and Hypertension Past Surgical History: Yes Surgical History: Angioplasty/Stents and CABG/Valve Surgery Family History History of Family Medical Conditions: Yes Family Medical History: Diabetes Mellitus, Cancer and Hypertension Social History Does patient currently use any type of tobacco product: No Have you used tobacco products in the last 12 months: No Type of Tobacco Use: None Does any household member use tobacco: No Alcohol Use: Rarely Do you use any recreational Drugs:: Yes (marijuana) Lives With: Family Lives Where: Home Travel Risk Coronavirus risk:travel/contact w/high risk person: No Has patient experienced Coronavirus symptoms: No Infectious screening In the last 2 months have you had wt loss of >10#?: NO Have you had fever, night sweats or hemotysis?: No Have you traveled outside the country in the last 6 months?: No Isolation: Standard ROS Review of Systems Neurological: Numbness (L-sided) All Other Systems: Reviewed and Negative PE Vital Signs Vitals: Vital Signs Temperature 98.0 F Pulse Rate 72 Pulse Rate 73 Pulse Rate 75 Pulse Rate 75 Pulse Rate 74 Pulse Rate 75 Respiratory Rate 20 Respiratory Rate 18 Respiratory Rate 20 Respiratory Rate 18 Blood Pressure 130/62 Blood Pressure 170/77 Blood Pressure 178/80 Blood Pressure 165/58 O2 Sat by Pulse Oximetry 95 O2 Sat by Pulse Oximetry 96 O2 Sat by Pulse Oximetry 98 O2 Sat by Pulse Oximetry 96 O2 Sat by Pulse Oximetry 97 General Limitations: No Limitations General Appearance: Alert and In No Apparent Distress Head Head Exam: Normal Inspection Eyes Eye exam: Normal Appearance Eyelids: Normal Inspection: Bilateral Pupils: Regular, Round: Bilateral Sclera/Conjunctival: Normal Inspection: Bilateral Anterior Chamber: Normal Inspection: Bilateral ENT ENT Exam: Normal Exam Mouth Exam: Normal Inspection Throat Exam: Normal Inspection Neck Neck Exam: Normal Inspection Chest Chest Inspection: Normal Inspection Respiratory Respiratory Exam: Normal Lung Sounds Bilat Respiratory Exam: Bilateral: Clear to Auscultation Cardiovascular Cardiovascular Exam: Regular Rate and Normal Rhythm Abdominal Exam Abdominal Exam: Normal Inspection, Normal Bowel Sounds and Soft Extremities Extremities Exam: Normal Inspection Back Back Exam: Normal Inspection Neurologic Cerebellar Function: Finger to Nose: Left Abnormal Sensory Exam Lower Extremity: Light Touch: Left Abnormal Psychiatric Psychiatric Exam: Normal Affect and Normal Mood Skin Skin Exam: Warm, Dry, Intact and Normal Color ROR Labs Reviewed 11/25/24 10:17 11/25/24 10:17 Laboratory: WBC 5.7 X10^3/uL (3.6-10.0) 11/25/24 10:17 RBC 4.72 X10^6/uL (4.7-6.0) 11/25/24 10:17 Hgb 14.8 g/dL (13.5-18.0) 11/25/24 10:17 Hct 43.5 % (42.0-54.0) 11/25/24 10:17 MCV 92.2 fL (80.0-100.0) 11/25/24 10:17 MCH 31.4 pg (27.0-34.0) 11/25/24 10:17 MCHC 34.1 g/dL (33.0-35.0) 11/25/24 10:17 RDW 13.9 % (11.6-16.5) 11/25/24 10:17 Plt Count 183 X10^3/uL (150.0-450.0) 11/25/24 10:17 MPV 8.8 fL (7.4-11.0) 11/25/24 10:17 Neut % (Auto) 50.8 % (42.0-75.0) 11/25/24 10:17 Lymph % (Auto) 36.6 % (21.0-51.0) 11/25/24 10:17 [place] % (Auto) 8.2 % (0.0-13.0) 11/25/24 10:17 Eos % (Auto) 3.2 % (0.9-2.9) H 11/25/24 10:17 Baso % (Auto) 1.2 % (0.2-1.0) H 11/25/24 10:17 Neut # (Auto) 2.9 x10^3/uL (2.2-4.8) 11/25/24 10:17 Lymph # (Auto) 2.1 X10^3/uL (1.3-2.9) 11/25/24 10:17 [place] # (Auto) 0.5 x10^3/uL (0.3-0.8) 11/25/24 10:17 Eos # (Auto) 0.2 x10^3/uL (0.0-0.2) 11/25/24 10:17 Baso # (Auto) 0.1 X10^3/uL (0.0-0.1) 11/25/24 10:17 Absolute Nucleated RBC 0.0 /100WBC 11/25/24 10:17 PT 13.4 SECONDS (11.8-14.3) 11/25/24 10:17 INR Target Range - 11/25/24 10:17 INR 1.04 (0.8-1.3) 11/25/24 10:17 APTT 32.2 SECONDS (22.9-36.5) 11/25/24 10:17 PTT Comment - 11/25/24 10:17 Fibrinogen 421 mg/dL (239-489) 11/25/24 10:17 Sodium 138 mmol/L (136-145) 11/25/24 10:17 Corrected Sodium 142 mmol/L (136-145) 11/25/24 10:17 Potassium 3.4 mmol/L (3.5-5.1) L 11/25/24 10:17 Chloride 102 mmol/L (98-107) 11/25/24 10:17 Carbon Dioxide 28.9 mmol/L (21-32) 11/25/24 10:17 BUN 13 mg/dL (7-18) 11/25/24 10:17 Creatinine 0.93 mg/dL (0.70-1.30) 11/25/24 10:17 Est GFR (MDRD) Af Amer > 60 (>60) 11/25/24 10:17 Est GFR (MDRD) Non-Af > 60 (>60) 11/25/24 10:17 Glucose 250 mg/dL (65-99) H 11/25/24 10:17 Calcium 9.1 mg/dL (8.5-10.1) 11/25/24 10:17 Corrected Calcium TNP 11/25/24 10:17 Total Bilirubin 0.50 mg/dL (0.2-1.0) 11/25/24 10:17 AST 26 Units/L (15-37) 11/25/24 10:17 ALT 35 Units/L (12-78) 11/25/24 10:17 Alkaline Phosphatase 120 Units/L (46-116) H 11/25/24 10:17 Creatine Kinase 255 Units/L (39-308) 11/25/24 10:17 Troponin I High Sens 25.6 ng/L (4.0-60.0) 11/25/24 10:17 Total Protein 8.2 g/dL (6.4-8.2) 11/25/24 10:17 Albumin 3.7 g/dL (3.4-5.0) 11/25/24 10:17 Globulin 4.5 g/dL (2.5-4.5) 11/25/24 10:17 Albumin/Globulin Ratio 0.8 Ratio (1.1-2.1) L 11/25/24 10:17 Triglycerides 107 mg/dL (0-150) 11/25/24 10:17 Cholesterol 134 mg/dL (0-200) 11/25/24 10:17 LDL Cholesterol, Calc 52 mg/dL (0-100) 11/25/24 10:17 HDL Cholesterol 61 mg/dL (40-60) H 11/25/24 10:17 Cholesterol/HDL Ratio 2.2 (0.0-5.0) 11/25/24 10:17 Specimen Type Clean catch urine 11/25/24 11:51 Urine Color Yellow (YELLOW) 11/25/24 11:51 Urine Appearance Clear (CLEAR) 11/25/24 11:51 Urine pH 6.5 (5.0 - 8.0) 11/25/24 11:51 Ur Specific [place] 1.010 (1.000-1.030) 11/25/24 11:51 Urine Protein 1+ (NEGATIVE) 11/25/24 11:51 Urine Glucose (UA) 3+ (NEGATIVE) 11/25/24 11:51 Urine Ketones Negative (NEGATIVE) 11/25/24 11:51 Urine Blood 2+ (NEGATIVE) 11/25/24 11:51 Urine Nitrite Negative (NEGATIVE) 11/25/24 11:51 Urine Bilirubin Negative (NEGATIVE) 11/25/24 11:51 Urine Urobilinogen Normal (NORMAL) 11/25/24 11:51 Ur Leukocyte Esterase Negative (NEGATIVE) 11/25/24 11:51 Urine RBC 0-2 /HPF (0-3) 11/25/24 11:51 Urine WBC None seen /HPF (0-5) 11/25/24 11:51 Ur Squamous Epith Cells Rare /HPF (NEGATIVE) 11/25/24 11:51 Urine Bacteria Negative /HPF (NEGATIVE) 11/25/24 11:51 Ur Culture Indicated? No/not indicated 11/25/24 11:51 Opioid Opioid Risk Tool Age (Don box if 16-45): No History of Preadolescent Sexual Abuse: No Total: 0 Total Score Risk Category: Low Risk Copyright: Aidan FIELDS predicting aberrant behaviors Discharge Plan Diagnosis Discharge Problem: Acute cerebrovascular accident (CVA) Discharge Plan Patient Disposition: ADMITTED INPATIENT Condition: Stable Orders to Discharge Patient Discharge Orders: Transfer (Routine); Ordered 11/25/24 Ordered By: Denys Betancourt ADDITIONAL NOTES Additional Notes Additional Notes: Pt evaluated by Dr Trevino (tele-neurology), not TPA candidate, recommends admission for MRI and further workup for CVA.
[2024-11-25] MEDS: OMNIPAQUE 350 mg/mL 100 mL BTL 100 ML ONE (13:44)
[2024-11-25 14:33] VITALS: BMI 31.1
[2024-11-25] MEDS: NS + KCL 20 MEQ/L 1,000 ML IV SCH (16:46)
--- NOTE | 2024-11-25 16:59 | MRI ---
EXAM: BRAIN W/O CON HISTORY: NUMBNESS ON LEFT SIDE OF FACE/BODY ; COMPARISON: None. TECHNIQUE: MRI imaging of the brain was performed without contrast using routine pulse sequences and imaging marilu yury. FINDINGS: There is a small focus of restricted diffusion in the right side of the antonio and this is compatible w ith a focal area of acute ischemia/infarction. There are no additional foci of restricted diffusion. There is T2 hyperintensity throughout the periventricular and subcortical white matter compatible w ith small-vessel ischemic disease. There is a small area of encephalomalacia in the left side of the antonio compatible with old left-sided lacunar infarct. There is no intracranial mass or hemorrhage. IMPRESSION: 4.5 mm area of acute ischemia in the right side of the antonio. THIS IS AN ELECTRONICALLY VERIFIED FINAL REPORT 11/25/2024 4:55 PM - Electronically signed by Neville Bell MD
--- NOTE | 2024-11-25 17:22 | EKG ---
Test Reason : CVA Blood Pressure : */* mmHG Vent. Rate : 68 BPM Atrial Rate : 68 BPM P-R Int : 176 ms QRS Dur : 108 ms QT Int : 456 ms P-R-T Axes : 59 0 151 degrees QTc Int : 484 ms Normal sinus rhythm Possible Left atrial enlargement Left ventricular hypertrophy with repolarization abnormality ( R in aVL , [place] product , Romhilt-E stes ) Inferior infarct , age undetermined Abnormal ECG When compared with ECG of 25-NOV-2024 10:51, (Unconfirmed) Minimal criteria for Septal infarct are no longer present ST no longer elevated in Anterior leads T wave inversion more evident in Anterior leads Confirmed by Victor Manuel Lyman MD ([id number]) on 11/25/2024 6:47:36 PM Referred By: Confirmed By: Victor Manuel Lyman MD
[2024-11-25] MEDS: ZESTRIL TAB 10 MG PO SCH (17:36)
[2024-11-25] MEDS: ASPIRIN 81 MG CHEWTAB PO ONE (17:36)
[2024-11-25] MEDS: ASPIRIN 81 MG CHEWTAB ONE (17:55)
[2024-11-25] MEDS: CONSULT PHARMACY - POTASSIUM & MAGNESIUM XX SCH (19:01)
[2024-11-25] MEDS: ASPIRIN 81 MG CHEWTAB PO SCH (19:01)
[2024-11-25] MEDS: PLAVIX PO ONE (19:01)
[2024-11-25] MEDS: NS 1,000 ML IV 1,000 ML IV SCH (19:01)
[2024-11-25] MEDS: PRAVACHOL PO SCH (20:29)
[2024-11-26 05:14] LABS: BASOPHILS # (AUTO) 0.1 X10^3/uL (0.0-0.1); BASOPHILS % (AUTO) 1.3 % (0.2-1.0); EOSINOPHILS # (AUTO) 0.4 x10^3/uL (0.0-0.2); EOSINOPHILS % (AUTO) 6.9 % (0.9-2.9); HEMATOCRIT 42.4 % (42.0-54.0); HEMOGLOBIN 14.6 g/dL (13.5-18.0); LYMPHOCYTES # (AUTO) 2.3 X10^3/uL (1.3-2.9); MEAN CORPUSCULAR HEMOGLOBIN 31.4 pg (27.0-34.0); MEAN CORPUSCULAR HGB CONC 34.4 g/dL (33.0-35.0); MEAN CORPUSCULAR VOLUME 91.2 fL (80.0-100.0); MEAN PLATELET VOLUME 9.3 fL (7.4-11.0); MONOCYTES # (AUTO) 0.4 x10^3/uL (0.3-0.8); MONOCYTES % (AUTO) 7.4 % (0.0-13.0); NEUTROPHILS # (AUTO) 2.6 x10^3/uL (2.2-4.8); NEUTROPHILS % (AUTO) 45.4 % (42.0-75.0); PLATELET COUNT 189 X10^3/uL (150.0-450.0); RED BLOOD COUNT 4.65 X10^6/uL (4.7-6.0); RED CELL DISTRIBUTION WIDTH 14.2 % (11.6-16.5); WHITE BLOOD COUNT 5.8 X10^3/uL (3.6-10.0)
[2024-11-26 05:26] LABS: ALANINE AMINOTRANSFERASE 34 Units/L (12-78); ALBUMIN 3.5 g/dL (3.4-5.0); ALKALINE PHOSPHATASE 112 Units/L (46-116); ASPARTATE AMINO TRANSFERASE 23 Units/L (15-37); BLOOD UREA NITROGEN 10 mg/dL (7-18); CALCIUM 9.3 mg/dL (8.5-10.1); CARBON DIOXIDE 28.8 mmol/L (21-32); CHLORIDE 102 mmol/L (98-107); CHOL/HDL RATIO 2.3 (0.0-5.0); CHOLESTEROL 132 mg/dL (0-200); COR NA(FOR HYPERGLY) 142 mmol/L (136-145); CREATININE 0.87 mg/dL (0.70-1.30); GLUCOSE 165 mg/dL (65-99); HDL CHOLESTEROL 58 mg/dL (40-60); MAGNESIUM 1.6 mg/dL (2.0-2.9); POTASSIUM 3.3 mmol/L (3.5-5.1); SODIUM 140 mmol/L (136-145); TOTAL PROTEIN 7.9 g/dL (6.4-8.2); TRIGLYCERIDES 90 mg/dL (0-150); eGFR NON BLACK RACES > 60 (>60)
[2024-11-26] MEDS ORDERED: K-DUR TAB 20 MEQ PO SCH (06:00)
[2024-11-26] MEDS ORDERED: MAG-OX TAB PO SCH (06:00)
--- NOTE | 2024-11-26 06:13 | RAD ---
EXAM:CHEST, 1 VIEWHISTORY:CVA, LEFT SIDED NUMBNESS ; CAD, DM, HTN SX: ANGIO/STENTS, CABG/VALVE SURGCOMPARISON:11/25/2024FINDINGS:The cardiomediastinal silhouette is stable. Similar post sternotomy changes.No acute airspace disease. No pneumothorax or effusion.No acute osseous abnormality.IMPRESSION:No acute cardiopulmonary disease.THIS IS AN ELECTRONICALLY VERIFIED FINAL REPORT11/26/2024 6:10 AM - Electronically signed by Zaid Go MD
[2024-11-26 06:15] LABS: INR 1.08 (0.8-1.3)
[2024-11-26] MEDS ORDERED: CONSULT PHARMACY - POTASSIUM & MAGNESIUM XX SCH (07:00)
--- NOTE | 2024-11-26 08:35 | DR.H&P ---
H&P History & Physical for Day of: H&P Date: 11/25/24 Chief Complaint Chief Complaint: left side weakness History of Present Illness History of Present Illness: 63 yo M, hx of CAD with prior stents, c/o acute onset of numbness to L side of his body, including L face, LUE & LLE, onset 12h ago. Denies other complaints. Pt currently on plavix & ASA for CAD. Past Medical History Past Medical History: Arthritis, Coronary Artery Disease, Diabetes and Hypertension Past Surgical History Surgical History: Angioplasty/Stents and CABG/Valve Surgery Family History Family Medical History: Diabetes Mellitus, Cancer and Hypertension Social History Does patient currently use any type of tobacco product: No Have you used tobacco products in the last 12 months: No Type of Tobacco Use: None Does any household member use tobacco: No Alcohol Use: None Drug Use: Marijuana Medications Home Medications: Home Medications Medication Instructions Recorded Confirmed Type aspirin 81 mg tablet,delayed 81 mg PO QDAY 11/25/24 11/25/24 History release atorvastatin 80 mg tablet 80 mg PO QHS 11/25/24 11/25/24 History carvedilol 12.5 mg tablet 12.5 mg PO BID 11/25/24 11/25/24 History clopidogrel 75 mg tablet 75 mg PO QDAY 11/25/24 11/25/24 History ferrous sulfate 325 mg (65 mg 325 mg PO QDAY 11/25/24 11/25/24 History iron) tablet hydrochlorothiazide 25 mg tablet 25 mg PO QAM 11/25/24 11/25/24 History losartan 100 mg tablet 100 mg PO QDAY 11/25/24 11/25/24 History nifedipine 60 mg tablet,extended 60 mg PO QDAY 11/25/24 11/25/24 History release trazodone 50 mg tablet 100 mg PO QHS 11/25/24 11/25/24 History Allergies Allergies Allergy/AdvReac Type Severity Reaction Status Date / Time No Known Drug Allergies Allergy Verified 07/27/24 15:12 Labs 11/26/24 04:30 11/26/24 04:30 Labs: Laboratory WBC 5.8 X10^3/uL (3.6-10.0) 11/26/24 04:30 RBC 4.65 X10^6/uL (4.7-6.0) L 11/26/24 04:30 Hgb 14.6 g/dL (13.5-18.0) 11/26/24 04:30 Hct 42.4 % (42.0-54.0) 11/26/24 04:30 MCV 91.2 fL (80.0-100.0) 11/26/24 04:30 MCH 31.4 pg (27.0-34.0) 11/26/24 04:30 MCHC 34.4 g/dL (33.0-35.0) 11/26/24 04:30 RDW 14.2 % (11.6-16.5) 11/26/24 04:30 Plt Count 189 X10^3/uL (150.0-450.0) 11/26/24 04:30 MPV 9.3 fL (7.4-11.0) 11/26/24 04:30 Neut % (Auto) 45.4 % (42.0-75.0) 11/26/24 04:30 Lymph % (Auto) 39.0 % (21.0-51.0) 11/26/24 04:30 [place] % (Auto) 7.4 % (0.0-13.0) 11/26/24 04:30 Eos % (Auto) 6.9 % (0.9-2.9) H 11/26/24 04:30 Baso % (Auto) 1.3 % (0.2-1.0) H 11/26/24 04:30 Neut # (Auto) 2.6 x10^3/uL (2.2-4.8) 11/26/24 04:30 Lymph # (Auto) 2.3 X10^3/uL (1.3-2.9) 11/26/24 04:30 [place] # (Auto) 0.4 x10^3/uL (0.3-0.8) 11/26/24 04:30 Eos # (Auto) 0.4 x10^3/uL (0.0-0.2) H 11/26/24 04:30 Baso # (Auto) 0.1 X10^3/uL (0.0-0.1) 11/26/24 04:30 Absolute Nucleated RBC 0.1 /100WBC 11/26/24 04:30 PT 13.8 SECONDS (11.8-14.3) 11/26/24 04:30 INR Target Range - 11/26/24 04:30 INR 1.08 (0.8-1.3) 11/26/24 04:30 APTT 32.1 SECONDS (22.9-36.5) 11/26/24 04:30 PTT Comment - 11/26/24 04:30 Fibrinogen 421 mg/dL (239-489) 11/25/24 10:17 Sodium 140 mmol/L (136-145) 11/26/24 04:30 Corrected Sodium 142 mmol/L (136-145) 11/26/24 04:30 Potassium 3.3 mmol/L (3.5-5.1) L 11/26/24 04:30 Chloride 102 mmol/L (98-107) 11/26/24 04:30 Carbon Dioxide 28.8 mmol/L (21-32) 11/26/24 04:30 BUN 10 mg/dL (7-18) 11/26/24 04:30 Creatinine 0.87 mg/dL (0.70-1.30) 11/26/24 04:30 Est GFR (MDRD) Af Amer > 60 (>60) 11/26/24 04:30 Est GFR (MDRD) Non-Af > 60 (>60) 11/26/24 04:30 Glucose 165 mg/dL (65-99) H 11/26/24 04:30 Calcium 9.3 mg/dL (8.5-10.1) 11/26/24 04:30 Corrected Calcium TNP 11/26/24 04:30 Magnesium 1.6 mg/dL (2.0-2.9) L 11/26/24 04:30 Total Bilirubin 0.40 mg/dL (0.2-1.0) 11/26/24 04:30 AST 23 Units/L (15-37) 11/26/24 04:30 ALT 34 Units/L (12-78) 11/26/24 04:30 Alkaline Phosphatase 112 Units/L (46-116) 11/26/24 04:30 Creatine Kinase 263 Units/L (39-308) 11/25/24 15:00 Troponin I High Sens 26.4 ng/L (4.0-60.0) 11/26/24 02:30 Total Protein 7.9 g/dL (6.4-8.2) 11/26/24 04:30 Albumin 3.5 g/dL (3.4-5.0) 11/26/24 04:30 Globulin 4.4 g/dL (2.5-4.5) 11/26/24 04:30 Albumin/Globulin Ratio 0.8 Ratio (1.1-2.1) L 11/26/24 04:30 Triglycerides 90 mg/dL (0-150) 11/26/24 04:30 Cholesterol 132 mg/dL (0-200) 11/26/24 04:30 LDL Cholesterol, Calc 56 mg/dL (0-100) 11/26/24 04:30 HDL Cholesterol 58 mg/dL (40-60) 11/26/24 04:30 Cholesterol/HDL Ratio 2.3 (0.0-5.0) 11/26/24 04:30 Specimen Type Clean catch urine 11/25/24 11:51 Urine Color Yellow (YELLOW) 11/25/24 11:51 Urine Appearance Clear (CLEAR) 11/25/24 11:51 Urine pH 6.5 (5.0 - 8.0) 11/25/24 11:51 Ur Specific [place] 1.010 (1.000-1.030) 11/25/24 11:51 Urine Protein 1+ (NEGATIVE) 11/25/24 11:51 Urine Glucose (UA) 3+ (NEGATIVE) 11/25/24 11:51 Urine Ketones Negative (NEGATIVE) 11/25/24 11:51 Urine Blood 2+ (NEGATIVE) 11/25/24 11:51 Urine Nitrite Negative (NEGATIVE) 11/25/24 11:51 Urine Bilirubin Negative (NEGATIVE) 11/25/24 11:51 Urine Urobilinogen Normal (NORMAL) 11/25/24 11:51 Ur Leukocyte Esterase Negative (NEGATIVE) 11/25/24 11:51 Urine RBC 0-2 /HPF (0-3) 11/25/24 11:51 Urine WBC None seen /HPF (0-5) 11/25/24 11:51 Ur Squamous Epith Cells Rare /HPF (NEGATIVE) 11/25/24 11:51 Urine Bacteria Negative /HPF (NEGATIVE) 11/25/24 11:51 Ur Culture Indicated? No/not indicated 11/25/24 11:51 Review of Systems Constitutional: Weakness Eyes: No Symptoms Reported ENT: No Symptoms Reported Respiratory: Shortness of Breath Cardiovascular: No Symptoms Reported Gastrointestinal: No Symptoms Reported Genitourinary: No Symptoms Reported Musculoskeletal: Other (left side weakness) Skin: No Symptoms Reported Neurological: Weakness and Incoordination Physical Exam Vital Signs: Vital Signs Temperature 98.8 F Pulse Rate 66 Pulse Rate 66 Respiratory Rate 15 Respiratory Rate 13 Blood Pressure 146/73 Blood Pressure 172/81 O2 Sat by Pulse Oximetry 93 O2 Sat by Pulse Oximetry 94 Oriented: Normal Eyes: Normal Ear: Normal Nose: Normal Throat: Normal Respiratory: Diminished Throughout Cardiovascular: Normal : Normal Auscultation: Bowel Sounds: Normal Palpation: Normal Tenderness: Normal Skin: Decreased Turgur Musculoskeletal: Left, Arm, Leg and Sensory Deficit Psychiatric: Anxiety Mood Description: Anxious Speech Pattern: Clear and Appropriate Assessment/Plan (1) Acute cerebrovascular accident (CVA): Status: Acute Plan: ADMIT, ICU ASPIRIN, STATIN, PLAVIX CARDIAC MONITORING, BP CONTROL BS CONTROL, FLP (2) Diabetes mellitus: Qualifiers: Diabetes mellitus type: type 2 Diabetes mellitus tank terminal gauger insulin use: unspecified tank terminal gauger insulin use status Diabetes mellitus complication status: without complication Qualified Code(s): E11.9 - Type 2 diabetes mellitus without complications Status: Chronic (3) Hypertension: Status: None (4) Arthritis: Status: None (5) Hyperlipemia: Status: Acute
[2024-11-26] MEDS: ASPIRIN PO SCH (08:53)
[2024-11-26] MEDS: PLAVIX PO SCH (08:53)
[2024-11-26] MEDS: LOVENOX INJ 40 MG SYR SC SCH (08:54)
[2024-11-26] MEDS: K-DUR TAB 20 MEQ PO SCH (08:54)
[2024-11-26] MEDS: MAG-OX TAB PO SCH (08:54)
[2024-11-26] MEDS ORDERED: PLAVIX PO SCH (09:00)
[2024-11-26] MEDS: NovoLIN R (or HumuLIN R) SUBCUT PRN (11:49)
[2024-11-26] MEDS: ROBITUSSIN DM PO PRN (20:33)
[2024-11-26] MEDS: SNACK - Diabetic Appropriate PO SCH (20:36)
[2024-11-26] MEDS: CATAPRES TAB 0.1 MG PO ONE (20:52)
[2024-11-27 05:28] LABS: BASOPHILS # (AUTO) 0.1 X10^3/uL (0.0-0.1); BASOPHILS % (AUTO) 0.9 % (0.2-1.0); EOSINOPHILS # (AUTO) 0.3 x10^3/uL (0.0-0.2); EOSINOPHILS % (AUTO) 4.1 % (0.9-2.9); HEMATOCRIT 41.8 % (42.0-54.0); HEMOGLOBIN 14.2 g/dL (13.5-18.0); LYMPHOCYTES # (AUTO) 1.7 X10^3/uL (1.3-2.9); LYMPHOCYTES % (AUTO) 21.2 % (21.0-51.0); MEAN CORPUSCULAR HEMOGLOBIN 31.2 pg (27.0-34.0); MEAN CORPUSCULAR HGB CONC 33.9 g/dL (33.0-35.0); MEAN CORPUSCULAR VOLUME 92.1 fL (80.0-100.0); MEAN PLATELET VOLUME 9.2 fL (7.4-11.0); MONOCYTES # (AUTO) 0.6 x10^3/uL (0.3-0.8); MONOCYTES % (AUTO) 7.4 % (0.0-13.0); NEUTROPHILS # (AUTO) 5.4 x10^3/uL (2.2-4.8); NEUTROPHILS % (AUTO) 66.4 % (42.0-75.0); PLATELET COUNT 190 X10^3/uL (150.0-450.0); RED BLOOD COUNT 4.54 X10^6/uL (4.7-6.0); RED CELL DISTRIBUTION WIDTH 14.5 % (11.6-16.5); WHITE BLOOD COUNT 8.1 X10^3/uL (3.6-10.0)
[2024-11-27 06:24] LABS: ALANINE AMINOTRANSFERASE 31 Units/L (12-78); ALBUMIN 3.3 g/dL (3.4-5.0); ALKALINE PHOSPHATASE 107 Units/L (46-116); ASPARTATE AMINO TRANSFERASE 19 Units/L (15-37); BLOOD UREA NITROGEN 12 mg/dL (7-18); CALCIUM 9.1 mg/dL (8.5-10.1); CARBON DIOXIDE 29.1 mmol/L (21-32); CHLORIDE 105 mmol/L (98-107); COR CA(FOR HYPOALB) 9.7 mg/dL (8.5-10.1); COR NA(FOR HYPERGLY) 143 mmol/L (136-145); CREATININE 1.03 mg/dL (0.70-1.30); GLUCOSE 210 mg/dL (65-99); MAGNESIUM 1.7 mg/dL (2.0-2.9); POTASSIUM 3.9 mmol/L (3.5-5.1); SODIUM 140 mmol/L (136-145); TOTAL PROTEIN 7.4 g/dL (6.4-8.2); eGFR NON BLACK RACES > 60 (>60)
[2024-11-27] MEDS: APRESOLINE INJ 20 MG VIAL ONE (06:46)
[2024-11-27] MEDS ORDERED: NORCO 5/325 MG TAB PO PRN (09:14)
[2024-11-27] MEDS: ZESTRIL TAB 20 MG PO SCH (09:22)
[2024-11-27] MEDS: NS + KCL 20 MEQ/L 1,000 ML with MAGNESIUM SULFATE 50% INJ VIAL 1 G IV SCH (09:51)
[2024-11-27] MEDS: COZAAR PO SCH (09:52)
[2024-11-27] MEDS: PROCARDIA XL 24-HR PO SCH (09:52)
[2024-11-27] MEDS: COREG TAB 12.5 MG PO SCH (09:52)
[2024-11-27] MEDS: LASIX IVP ONE (15:07)
[2024-11-27] MEDS: DESYREL PO SCH (20:24)
[2024-11-28 04:30] VITALS: TEMP 98.7
[2024-11-28 05:15] LABS: BASOPHILS % (AUTO) 0.5 % (0.2-1.0); EOSINOPHILS # (AUTO) 0.4 x10^3/uL (0.0-0.2); EOSINOPHILS % (AUTO) 5.1 % (0.9-2.9); HEMATOCRIT 42.1 % (42.0-54.0); HEMOGLOBIN 13.9 g/dL (13.5-18.0); LYMPHOCYTES # (AUTO) 1.6 X10^3/uL (1.3-2.9); LYMPHOCYTES % (AUTO) 22.6 % (21.0-51.0); MEAN CORPUSCULAR HEMOGLOBIN 30.7 pg (27.0-34.0); MEAN CORPUSCULAR HGB CONC 33.1 g/dL (33.0-35.0); MEAN CORPUSCULAR VOLUME 92.7 fL (80.0-100.0); MEAN PLATELET VOLUME 9.7 fL (7.4-11.0); MONOCYTES # (AUTO) 0.8 x10^3/uL (0.3-0.8); MONOCYTES % (AUTO) 11.5 % (0.0-13.0); NEUTROPHILS # (AUTO) 4.3 x10^3/uL (2.2-4.8); NEUTROPHILS % (AUTO) 60.3 % (42.0-75.0); PLATELET COUNT 182 X10^3/uL (150.0-450.0); RED BLOOD COUNT 4.53 X10^6/uL (4.7-6.0); RED CELL DISTRIBUTION WIDTH 14.1 % (11.6-16.5); WHITE BLOOD COUNT 7.2 X10^3/uL (3.6-10.0)
[2024-11-28 05:26] LABS: ALANINE AMINOTRANSFERASE 27 Units/L (12-78); ALBUMIN 3.4 g/dL (3.4-5.0); ALKALINE PHOSPHATASE 107 Units/L (46-116); ASPARTATE AMINO TRANSFERASE 17 Units/L (15-37); BLOOD UREA NITROGEN 10 mg/dL (7-18); CALCIUM 9.1 mg/dL (8.5-10.1); CARBON DIOXIDE 27.2 mmol/L (21-32); CHLORIDE 103 mmol/L (98-107); COR NA(FOR HYPERGLY) 142 mmol/L (136-145); CREATININE 0.87 mg/dL (0.70-1.30); GLUCOSE 159 mg/dL (65-99); MAGNESIUM 1.7 mg/dL (2.0-2.9); POTASSIUM 3.5 mmol/L (3.5-5.1); SODIUM 141 mmol/L (136-145); TOTAL PROTEIN 7.9 g/dL (6.4-8.2); eGFR NON BLACK RACES > 60 (>60)
[2024-11-28] MEDS ORDERED: CONSULT PHARMACY - POTASSIUM & MAGNESIUM XX SCH (06:00)
[2024-11-28] MEDS: ROCEPHIN VIAL 1 GRAM 1 G in NS 100 ML IV 100 ML IV SCH (09:04)
[2024-11-28] MEDS: TUSSIONEX PENNKINETIC SUSP PO ONE (09:04)
[2024-11-28] MEDS: K-DUR TAB 20 MEQ PO SCH (09:05)
[2024-11-28] MEDS: MAG-OX TAB PO SCH (09:05)
[2024-11-28] MEDS: ALPRAZOLAM ODT PO ONE (09:05)
[2024-11-28] MEDS: LR 1,000 ML IV 0 ML IV ONE (09:14)
[2024-11-28 09:22] VITALS: BP 159/70; PULSE 83; RESP 22; O2SAT 95
== END 2024-11-28 10:30 | disposition short-term general hospital (02) | DRG 65 ==
LOC: ER 10:09 → ICU 10:09 → OBSVTOIN 12:23 → ICU 12:54
PROVIDERS: ADMIT Internal Medicine; ATTEND Internal Medicine
DX: R94.31 Abnormal electrocardiogram [ECG] [EKG]; I10 Essential (primary) hypertension; R53.1 Weakness; E83.42 Hypomagnesemia; E87.6 Hypokalemia; E78.5 Hyperlipidemia, unspecified; I63.239 Cerebral infarction due to unspecified occlusion or stenosis of unspecified carotid artery; I25.810 Atherosclerosis of coronary artery bypass graft(s) without angina pectoris; R20.2 Paresthesia of skin; R74.8 Abnormal levels of other serum enzymes; R60.0 Localized edema; R06.02 Shortness of breath; E11.65 Type 2 diabetes mellitus with hyperglycemia; Z79.01 Long term (current) use of anticoagulants; R26.89 Other abnormalities of gait and mobility; Z95.1 Presence of aortocoronary bypass graft; M51.369 Other intervertebral disc degeneration, lumbar region without mention of lumbar back pain or lower extremity pain